=== PATIENT | female | born 1990 | race Caucasian/White ===

== ENCOUNTER → 2021-06-22 14:53 | Outpatient (CLI) | payer OTHER, SELFPAY ==
--- NOTE | 2021-06-22 14:59 | DI.US.S_ITS ---
LIMITED ULTRASOUND OF LEFT BREAST: 06/22/2021 CLINICAL: Palpable left breast lump. Comparison is made to exam dated: 06/22/2021 [facility]. Real-time ultrasound of the left breast 12 o'clock region was performed on the area of interest. No discrete cystic or solid mass lesion identified in the area of palpable abnormality. IMPRESSION: NEGATIVE There is no sonographic evidence of malignancy. There is no abnormality seen in the left breast to correspond with the palpable abnormality at 12 o'clock, however, clinical followup is recommended. This exam was interpreted at Station ID: [id number]. Electronically Signed By: Jayson Smith M.D. ddp/:06/22/2021 16:29:38 letter sent: Clinical Evaluation Ultrasound BI-RADS: 1 Negative
--- NOTE | 2021-06-22 14:59 | DI.MG.S_ITS ---
BILATERAL DIGITAL DIAGNOSTIC MAMMOGRAM 3D/2D: 06/22/2021 CLINICAL: Baseline. Left breast lump. No prior exams were available for comparison. The tissue of both breasts is extremely dense, which lowers the sensitivity of mammography. No significant masses, calcifications, or other findings are seen in either breast. IMPRESSION: INCOMPLETE: NEEDS ADDITIONAL IMAGING EVALUATION There is no abnormality seen in the left breast to correspond with the palpable abnormality at 12 o'clock, however, ultrasound is recommended. Ultrasound will be performed immediately following the current exam. This exam was interpreted at Station ID: [id number]. NOTE: For mammograms, a report in lay terms will be sent to the patient. Approximately 15% of breast malignancies will not be visualized mammographically. In the management of a palpable breast mass, a negative mammogram must not discourage biopsy of a clinically suspicious lesion. Electronically Signed By: Jayson Smith M.D. ddp/:06/22/2021 15:22:37 ACR BI-RADS Category 0: Incomplete [id number]
== END ==
PROVIDERS: PCP Physician Assistant; Referring Provider Physician Assistant; Visit Provider Physician Assistant
DX: N63.25 Unspecified lump in the left breast, overlapping quadrants (principal); R92.2 Inconclusive mammogram
CPT/HCPCS: 76642; 77066; G0279